=== PATIENT | male | born 1975 | race Two or more races ===

== ENCOUNTER 2023-03-28 17:35 | Emergency (ER) | payer OTHER ==
[2023-03-28 17:43] VITALS: BP 136/88; PULSE 83; RESP 18; TEMP 98.5; BMI 36.3
[2023-03-28] MEDS ORDERED: SODIUM CHLORIDE 0.9% 500 ML INFUS.BAG IV ONE (18:28)
[2023-03-28] MEDS ORDERED: ACETAMINOPHEN 1000 MG/100 ML BAG IVPB ONE (18:28)
[2023-03-28] MEDS ORDERED: MAG HYDROX/AL HYDROX/SIMETH 30 ML UNIT-DOSE CUP PO ONE (18:28)
[2023-03-28] MEDS ORDERED: FAMOTIDINE 20 MG/50 ML IVPB 20 MG/50 ML MG IVPB ONE ×2 (18:28→19:49)
[2023-03-28] MEDS ORDERED: ONDANSETRON 4 MG/2 ML VIAL IVPUSH ONE (18:28)
[2023-03-28] MEDS ORDERED: MAG HYDROX/AL HYDROX/SIMETH 30 ML UNIT-DOSE CUP ONE (19:49)
[2023-03-28] MEDS ORDERED: ACETAMINOPHEN INJECTION 100 ML IVPB ONE (19:49)
[2023-03-28] MEDS ORDERED: ONDANSETRON 4 MG/2 ML VIAL ONE (19:49)
[2023-03-28 20:40] LABS: POTASSIUM 3.8 mmol/L (3.5-5.1)
[2023-03-28 20:41] LABS: CALCIUM 8.7 mg/dL (8.5-10.1)
[2023-03-28 20:42] LABS: ALBUMIN 3.5 g/dl (3.4-5.0); BLOOD UREA NITROGEN 6.4 mg/dL (7-18)
[2023-03-28 20:45] LABS: CREATININE 0.9 mg/dL (0.55-1.3)
[2023-03-28 20:46] LABS: BILIRUBIN,TOTAL 0.5 mg/dL (0.2-1)
[2023-03-28 20:47] LABS: TOT PROT 7.3 g/dl (6.4-8.2)
[2023-03-28 20:51] LABS: BASO % 0.2 % (0-2.0); HEMATOCRIT 40.3 % (35.4-49); HEMOGLOBIN 13.3 GM/dL (11.7-16.9); LYMPH % 39.2 % (8-40); MCH 26.9 pg (25.7-33.7); MEAN CELL VOLUME 81.6 fl (80-96); MONO % 10.1 % (3.8-10.2); NEUT % 49.5 % (42.8-82.8); PLATELET COUNT 281 10^3/uL (134-434); RBC 4.94 M/mm3 (4.00-5.60); RDW 12.7 % (11.9-15.9); WHITE BLOOD COUNT 3.9 K/mm3 (4.0-10.0)
[2023-03-28 20:51] LABS: EPI CELLS 1 /uL (0-25.1); HYALINE CASTS 0 /uL (0-3.1); PH,URINE 5.5 (5.0-8.0); URINE APPEARANCE CLEAR; URINE BACTERIA 0 /uL (0-1359); URINE BILIRUBIN NEGATIVE (NEGATIVE); URINE COLOR DK YELLOW; URINE GLUCOSE (UA) 2+ (NEGATIVE); URINE KETONE NEGATIVE (NEGATIVE); URINE LEUK ESTERASE NEGATIVE (NEGATIVE); URINE NITRITE NEGATIVE (NEGATIVE); URINE PROTEIN 1+ (NEGATIVE); URINE RBC 24 /uL (0-23.9); URINE UROBILINOGEN 0.2 mg/dL (0.2-1.0); URINE WBC 9 /uL (0-25.8)
[2023-03-28] MEDS ORDERED: KETOROLAC TROMETHAMINE 15 MG/ML VIAL IVPUSH ONE (22:32)
== END 2023-03-28 23:32 | disposition home or self-care (01) ==
LOC: JER 17:35
PROC: 3E033GC Introduction of Other Therapeutic Substance into Peripheral Vein, Percutaneous Approach (ICD-10-PCS; principal; 2023-03-28)
PROC: 3E033GC Introduction of Other Therapeutic Substance into Peripheral Vein, Percutaneous Approach (ICD-10-PCS; 2023-03-28)
PROC: 3E033NZ Introduction of Analgesics, Hypnotics, Sedatives into Peripheral Vein, Percutaneous Approach (ICD-10-PCS; 2023-03-28)
DX: R10.84 Generalized abdominal pain (principal); R11.2 Nausea with vomiting, unspecified; R19.7 Diarrhea, unspecified; R50.9 Fever, unspecified; Z20.822 Contact with and (suspected) exposure to COVID-19
CPT/HCPCS: 0241U-QW; 36415; 71046-TC-FY; 74177-TC; 80053; 81003; 83690; 84484; 85025; 87086; 93005; 93010; 99285-25; Q9967

== ENCOUNTER 2023-09-21 13:16 | Emergency (ER) | payer OTHER ==
[2023-09-21 13:25] VITALS: BP 145/83; PULSE 65; RESP 18; TEMP 97.7; BMI 30.4
[2023-09-21 14:54] LABS: THROAT:GRP A STREP NOT DETECTED (NOTDETECTED)
== END 2023-09-21 16:05 | disposition home or self-care (01) ==
LOC: JERFT 13:16
DX: B30.9 Viral conjunctivitis, unspecified (principal); B34.9 Viral infection, unspecified; R50.9 Fever, unspecified; R05.9 Cough, unspecified; J02.9 Acute pharyngitis, unspecified; Z20.822 Contact with and (suspected) exposure to COVID-19
CPT/HCPCS: 0241U-QW; 87651; 99283-25